=== PATIENT | female | born 1970 | race Hispanic/Latino ===

== ENCOUNTER → 2019-09-21 | Day surgery (SDC) | payer BC, OTHER ==
[~2019-09-21] MED LIST: ATORVASTATIN CA20 MG PO; GLIPIZIDE5 MG PO; HYOSCYAMINE 0.125 MG TAB ONE; LIDOCAINE HCL 2% LOCAL INJ 5 ML SDV VIAL INJ ONE; LISINOPRIL2.5 MG PO; METFORMIN HCL500 MG PO; PROPOFOL IV EMULSION 10 MG/ML 20 ML VIAL ONE; TRULICITY0.75 MG/0. INJ
[2019-09-21 09:09] VITALS: BP 103/87
--- NOTE | 2019-09-21 09:37 | Operative Report ---
DATE OF PROCEDURE: 09/21/2019 SURGEON: Balbir Maldonado MD PROCEDURE: Colonoscopy with polypectomy. INDICATIONS FOR COLONOSCOPY: Colorectal cancer screening. MEDICATIONS: The patient was done under MAC. Please see anesthesiologist's note. DESCRIPTION OF PROCEDURE: With the patient in the left lateral decubitus position, a flexible fiberoptic Olympus colonoscope was inserted into the rectum with ease and advanced all the way to the cecum. It was then withdrawn slowly mucosa overlying the cecum, ascending colon and transverse colon appeared to be within normal limits. A minute polyp was removed per the cold biopsy forceps from the descending colon. Two polyps were removed per hot snare polypectomy from the sigmoid colon. The scope was retroflexed into the distal rectum and small internal hemorrhoids were noted none of which was actively bleeding. The scope was then straightened out, it was subsequently withdrawn and some external hemorrhoids were also noted without active bleeding. The patient tolerated procedure well. IMPRESSION: 1. Descending colon polyp removed per cold biopsy forceps. 2. Sigmoid colon polyps x2 with the largest approximately 6 mm removed per hot snare polypectomy. 3. Internal hemorrhoids, none actively bleeding. 4. External hemorrhoids, none actively bleeding. PLAN: Follow up histology. Initiate high-fiber, low-fat diet. Initiate high-fiber supplement. The patient might benefit from a followup colonoscopy in 3 years. Balbir Maldonado MD [facility] [place]/IVY /[id number] cc: Mikayla Marx MD
== END | disposition home or self-care (01) ==
LOC: OR 06:08
PROVIDERS: ATTEND Internal Medicine Gastroenterology
DX: Z12.11 Encounter for screening for malignant neoplasm of colon (principal); D12.4 Benign neoplasm of descending colon; K64.8 Other hemorrhoids; K64.4 Residual hemorrhoidal skin tags; E11.9 Type 2 diabetes mellitus without complications; I10 Essential (primary) hypertension; E78.5 Hyperlipidemia, unspecified; Z01.810 Encounter for preprocedural cardiovascular examination; Z01.812 Encounter for preprocedural laboratory examination; Z11.59 Encounter for screening for other viral diseases; Z79.84 Long term (current) use of oral hypoglycemic drugs; Z80.0 Family history of malignant neoplasm of digestive organs
CPT/HCPCS: 36415; 45380; 45385; 81025; 82948; 93005; J2001; J2704; U0002